=== PATIENT | male | born 1950 | race Caucasian/White ===

== ENCOUNTER → 2022-07-16 | Outpatient (CLI) | payer MEDICARE ==
[~2022-07-16] MED LIST: MULVITA PO
== END | disposition home or self-care (01) ==
LOC: PLD 07:33 → LAB SHORT 07:33
DX: L98.9 Disorder of the skin and subcutaneous tissue, unspecified (principal); C44.329 Squamous cell carcinoma of skin of other parts of face
CPT/HCPCS: 88305